=== PATIENT | male | born 1950 | race Two or more races ===

== ENCOUNTER 2023-09-05 08:45 | Inpatient (IN) | payer OTHER ==
[~2023-09-05] VITALS: Ht 172.7 cm; Wt 65.8 kg
[2023-09-05] MEDS ORDERED: COZAAR25 MG PO (10:21)
[2023-09-05] MEDS ORDERED: CHILDREN'S ASPI81 MG PO (10:22)
[2023-09-05] MEDS ORDERED: AMLODIPINE BESY10 MG PO (10:22)
[2023-09-05 10:26] LABS: HEMATOCRIT 36.4 % (39.0-48.0); HEMOGLOBIN 12.6 g/dL (13-16.00); MEAN CELL VOLUME 86.9 fL (80.0-100.00); MEAN CORPUSCULAR HEMOGLOBIN 30.2 pg (27.00-32.0); MEAN CORPUSCULAR HGB CONC 34.7 g/dl (32.0-36.0); PLATELET COUNT 232 K/uL (150-450); RED BLOOD COUNT 4.18 M/uL (4.00-6.00); RED CELL DISTRIBUTION WIDTH 14.1 % (11.5-14.5)
[2023-09-05 10:41] LABS: URINE APPEARANCE Clear; URINE BILIRRUBIN Negative (NEGATIVE); URINE COLOR Yellow; URINE GLUCOSE Negative (NEGATIVE); URINE LEUKOCYTE Negative; URINE NITRATE Negative; URINE PROTEIN Negative (NEGATIVE); URINE UROBILINOGEN 0.2 E.U./dl
[2023-09-05 10:42] LABS: URINE BACTERIA 8.8 uL (0.0-1933); URINE RBC 20.4 uL (0.0-20.8); URINE WBC 3.2 uL (0.0-23.2)
[2023-09-05 11:03] LABS: URINE BLOOD TRACE; URINE EPITHELIAL CELLS 0.4 uL (0.0-38.8)
[2023-09-05 11:05] LABS: INR 0.98; PARTIAL THROMBOPLASTIN TIME 29.3 SECONDS (22.0-34.0); PROTHROMBIN TIME 10.3 SECONDS (9.0-11.5)
[2023-09-05 11:38] LABS: ALBUMIN 4.6 gm/dL (3.4-5.0); BILIRUBIN TOTAL 0.39 mg/dL (0.3-1.2); CALCIUM 9.3 mg/dL (8.5-10.1); CREATININE SERUM 0.8 mg/dL (0.70-1.30); GFR 94.5; GLOBULINA 3.9 G/DL (2.4-3.5); POTASSIUM 3.66 mEq/L (3.5-5.1); TOTAL PROTEIN 8.5 gm/dL (6.4-8.2)
[2023-09-12] MEDS ORDERED: CEFAZOLIN SODIUM 1,000 MG VIAL ONE (09:45)
[2023-09-12] MEDS ORDERED: VANCOMYCIN HCL 1,000 MG VIAL ONE (09:46)
[2023-09-12] MEDS ORDERED: TRANEXAMIC ACID 100MG/1ML (1000MG) AMPUL IV ONE ×3 (09:46→11:45)
[2023-09-12] MEDS ORDERED: LIDOCAINE HCL 1%/Epi 20ML VIAL IJ ONE ×2 (09:46→11:30)
[2023-09-12] MEDS ORDERED: BUPIVACAINE HCL/PF 0.5% 30ML ML ONE (09:46)
[2023-09-12] MEDS ORDERED: KETOROLAC TROMETHAMINE 60 MG VIAL IM ONE ×2 (09:46→11:30)
[2023-09-12] MEDS ORDERED: MORPHINE SULFATE 4 MG/ML CARTRIDGE IV PRN (10:15)
[2023-09-12] MEDS ORDERED: ONDANSETRON HCL 2 MG/ML VIAL IV PRN (10:15)
[2023-09-12] MEDS ORDERED: SODIUM CHLORIDE 0.45 % 1,000 ML IV SCH (10:15)
[2023-09-12] MEDS ORDERED: OxyCODONE HCL 5 MG TABLET (ROXICODONE) PO PRN (10:15)
[2023-09-12] MEDS ORDERED: POVIDONE-IODINE SCRUB 118 ML BOTT TOP ONE (11:18)
[2023-09-12] MEDS ORDERED: BUPIVACAINE HCL 30 ML VIAL IJ ONE (11:30)
[2023-09-12] MEDS ORDERED: CEFAZOLIN SODIUM 1,000 MG VIAL IV ONE (11:30)
[2023-09-12] MEDS ORDERED: VANCOMYCIN HCL 1,000 MG VIAL IR ONE (11:45)
[2023-09-12] MEDS ORDERED: ACETAMINOPHEN 500 MG GEL..CAP PO SCH (12:00)
[2023-09-12] MEDS ORDERED: ENALAPRILAT DIHYDRATE 1.25 MG/ML VIAL IV PRN (15:30)
[2023-09-12] MEDS ORDERED: CEFAZOLIN SODIUM 1,000 MG VIAL IV SCH (17:00)
[2023-09-12] MEDS ORDERED: GABAPENTIN 300 MG CAPSULE PO SCH (17:00)
[2023-09-13 06:29] LABS: HEMATOCRIT 26.4 % (39.0-48.0); MEAN CELL VOLUME 86.5 fL (80.0-100.00); MEAN CORPUSCULAR HGB CONC 34.9 g/dl (32.0-36.0); PLATELET COUNT 172 K/uL (150-450); RED BLOOD COUNT 3.05 M/uL (4.00-6.00); RED CELL DISTRIBUTION WIDTH 13.8 % (11.5-14.5)
[2023-09-13 06:53] LABS: HEMOGLOBIN 9.2 g/dL (13-16.00); MEAN CORPUSCULAR HEMOGLOBIN 30.1 pg (27.00-32.0)
[2023-09-13] MEDS ORDERED: LOSARTAN POTASSIUM 50 MG TABLET PO SCH (09:00)
[2023-09-13] MEDS ORDERED: SENNOSIDES 1 TAB TABLET PO SCH (09:00)
[2023-09-13] MEDS ORDERED: APIXABAN 2.5 MG TABLET PO SCH (09:00)
[2023-09-13] MEDS ORDERED: AMLODIPINE BESYLATE 10 MG TABLET PO SCH (09:00)
[2023-09-13] MEDS ORDERED: ELIQUIS2.5 MG PO (09:01)
[2023-09-13] MEDS ORDERED: PERCOCET 5-3251 EACH PO (09:01)
[2023-09-13] MEDS ORDERED: DUI500 PO (09:01)
[2023-09-13] MEDS ORDERED: Cyanocobalamin/Mecobalamin 1 TAB.SL SL SCH (11:03)
[2023-09-13] MEDS ORDERED: SOD FERRIC GLUC COMPLX/SUCROSE 62.5 MG/5 ML AMPUL IV SCH (11:03)
[2023-09-13] MEDS ORDERED: VITAMIN B COMPLEX 1 EACH PO SCH (11:03)
[2023-09-13] MEDS ORDERED: FUROsemide 20 MG/2 ML VIAL IV SCH (11:15)
[2023-09-14] MEDS ORDERED: IRON FUM,PS/FOLIC ACID/VITC/B3 1 CAP CAPSULE PO SCH (09:00)
[2023-09-14 11:55] LABS: HEMATOCRIT 35.3 % (39.0-48.0); HEMOGLOBIN 12.2 g/dL (13-16.00); MEAN CORPUSCULAR HEMOGLOBIN 29.3 pg (27.00-32.0); MEAN CORPUSCULAR HGB CONC 34.4 g/dl (32.0-36.0); PLATELET COUNT 167 K/uL (150-450); RED BLOOD COUNT 4.16 M/uL (4.00-6.00); RED CELL DISTRIBUTION WIDTH 14.3 % (11.5-14.5)
[2023-09-14] MEDS ORDERED: OxyCODONE HCL 5 MG TABLET (ROXICODONE) PO PRN (13:45)
== END 2023-09-14 21:20 | DRG 470 ==
LOC: SURH 09-12 06:00 → O/R 09-12 06:00 → SURH 09-12 07:00
PROVIDERS: ADMIT Orthopaedic Surgery; ATTEND Orthopaedic Surgery
PROC: 0MBL0ZZ Excision of Right Hip Bursa and Ligament, Open Approach (ICD-10-PCS; 2023-09-12)
PROC: 0SR90JA Replacement of Right Hip Joint with Synthetic Substitute, Uncemented, Open Approach (ICD-10-PCS; principal; 2023-09-12 07:00)
PROC: 30233N1 Transfusion of Nonautologous Red Blood Cells into Peripheral Vein, Percutaneous Approach (ICD-10-PCS; 2023-09-13)
DX: M16.11 Unilateral primary osteoarthritis, right hip (principal); D62 Acute posthemorrhagic anemia; M89.751 Major osseous defect, right pelvic region and thigh; M70.61 Trochanteric bursitis, right hip; I10 Essential (primary) hypertension

== ENCOUNTER 2024-12-04 07:44 | Inpatient (IN) | payer OTHER ==
[~2024-12-04] VITALS: Ht 167.6 cm; Wt 59.0 kg
[~2024-12-04 07:44] MED LIST: AMLODIPINE BESY10 MG PO; CHILDREN'S ASPI81 MG PO; COZAAR25 MG PO; DUI500 PO; ELIQUIS2.5 MG PO; PERCOCET 5-3251 EACH PO
[2024-12-04 08:48] VITALS: BP 145/65
[2024-12-04 09:04] LABS: BASO % 1.7 % (0.1-1.2); EOS # 0.22 (0.04-0.54); EOS % 4.8 % (0.7-7.0); HEMATOCRIT 36.7 % (40.1-51.0); HEMOGLOBIN 12.2 g/dL (13.7-17.5); LYMPH # 1.16 (1.18-3.74); LYMPH % 25.1 % (19.3-53.1); MONO # 0.56 (0.24-0.82); NEUT # 2.59 (1.56-6.13); NEUT % 56.1 % (34.0-71.1); PLATELET COUNT 223 K/uL (163-369)
[2024-12-04 09:08] LABS: PH,URINE 7.5 (5.0-8.0); URINE APPEARANCE Clear; URINE BILIRRUBIN Negative (NEGATIVE); URINE BLOOD Trace; URINE COLOR Yellow; URINE GLUCOSE Negative (NEGATIVE); URINE KETONE Negative (NEGATIVE); URINE LEUKOCYTE Negative; URINE NITRATE Negative; URINE PROTEIN Negative (NEGATIVE); URINE UROBILINOGEN 0.2 E.U./dl
[2024-12-04 09:09] LABS: MONO % 12.1 % (4.7-12.5)
[2024-12-04 09:10] LABS: URINE RBC 17.6 uL (0.0-20.8)
[2024-12-04 09:15] LABS: URINE BACTERIA 2.4 uL (0.0-1933); URINE EPITHELIAL CELLS 0.3 uL (0.0-38.8); URINE WBC 0.9 uL (0.0-23.2)
[2024-12-04 09:26] LABS: COVID-19 AG NEGATIVE (NEGATIVE)
[2024-12-04 09:40] LABS: INR 0.97; PROTHROMBIN TIME 10.6 SECONDS (9.0-11.5)
[2024-12-04 10:18] LABS: CHOL HDL RATIO 1.6 (0-5.0)
[2024-12-04 10:20] LABS: ALBUMIN 4.5 gm/dL (3.4-5.0); BILIRUBIN TOTAL 0.47 mg/dL (0.3-1.2); CALCIUM 9.7 mg/dL (8.5-10.1); CREATININE SERUM 0.79 mg/dL (0.70-1.30); GFR 95.62; GLOBULINA 3.8 G/DL (2.4-3.5); POTASSIUM 4.26 mEq/L (3.5-5.1); TOTAL PROTEIN 8.3 gm/dL (6.4-8.2)
[2024-12-10] MEDS ORDERED: VANCOMYCIN HCL 1,000 MG VIAL ONE (06:26)
[2024-12-10] MEDS ORDERED: BUPIVACAINE HCL/MPF 0.5% 30ML VIAL ONE (06:26)
[2024-12-10] MEDS ORDERED: LIDOCAINE HCL 1%/EPINEPHRINE 20ML VIAL IJ ONE (06:26)
[2024-12-10] MEDS ORDERED: KETOROLAC TROMETHAMINE 60 MG VIAL IM ONE (06:26)
[2024-12-10] MEDS ORDERED: POVIDONE-IODINE 118 ML BOTT TOP ONE (06:27)
[2024-12-10] MEDS ORDERED: CEFAZOLIN SODIUM 1,000 MG VIAL ONE ×2 (06:32→06:55)
[2024-12-10] MEDS ORDERED: TRANEXAMIC ACID 100MG/1ML (1000MG) AMPUL IV ONE (06:33)
[2024-12-10] MEDS ORDERED: LATANOPROST2.5 ML (08:14)
[2024-12-10] MEDS ORDERED: DORZOLAMIDE-TIM10 ML (08:14)
[2024-12-10] MEDS ORDERED: LOSARTAN-HCTZ1 EAC1 (08:14)
[2024-12-10] MEDS ORDERED: ATORVASTATIN CA20 MG (08:14)
[2024-12-10] MEDS ORDERED: ST. JOSEPH ASPI81 M2 (08:15)
[2024-12-10] MEDS ORDERED: MORPHINE SULFATE 4 MG/ML CARTRIDGE IV PRN (09:30)
[2024-12-10] MEDS ORDERED: OxyCODONE HCL 5 MG TABLET (ROXICODONE) PO PRN (09:30)
[2024-12-10] MEDS ORDERED: ONDANSETRON HCL 2 MG/ML VIAL IV PRN (09:30)
[2024-12-10] MEDS ORDERED: SODIUM CHLORIDE 0.45 % 1,000 ML IV SCH (09:30)
[2024-12-10] MEDS ORDERED: ENALAPRILAT DIHYDRATE 1.25 MG/ML VIAL IV PRN (10:30)
[2024-12-10] MEDS ORDERED: MORPHINE SULFATE 4 MG/ML VIAL IV ONE (11:10)
[2024-12-10] MEDS ORDERED: ACETAMINOPHEN 500 MG GEL..CAP PO SCH (12:00)
[2024-12-10 12:09] VITALS: BP 138/74; O2SAT 100
[2024-12-10 16:33] VITALS: BP 143/64; O2SAT 100
[2024-12-10] MEDS ORDERED: CEFAZOLIN SODIUM 1,000 MG VIAL IV SCH (17:00)
[2024-12-10] MEDS ORDERED: GABAPENTIN 300 MG CAPSULE PO SCH (17:00)
[2024-12-11 01:04] VITALS: BP 121/65; O2SAT 99
[2024-12-11 06:49] LABS: BASO % 0.8 % (0.1-1.2); EOS # 0.03 (0.04-0.54); EOS % 0.6 % (0.7-7.0); HEMATOCRIT 28.4 % (40.1-51.0); LYMPH # 0.92 (1.18-3.74); LYMPH % 18.5 % (19.3-53.1); MEAN CORPUSCULAR HEMOGLOBIN 29.4 pg (25.6-32.2); NEUT # 3.27 (1.56-6.13); NEUT % 65.8 % (34.0-71.1); PLATELET COUNT 181 K/uL (163-369); RED CELL DISTRIBUTION WIDTH 13.8 % (11.6-14.4)
[2024-12-11 06:59] LABS: HEMOGLOBIN 9.7 g/dL (13.7-17.5); MONO % 14.1 % (4.7-12.5)
[2024-12-11 08:12] VITALS: BP 137/52; O2SAT 100
[2024-12-11] MEDS ORDERED: PERCOCET 5-3251 EACH PO (08:37)
[2024-12-11] MEDS ORDERED: DUI500 PO (08:37)
[2024-12-11] MEDS ORDERED: ELIQUIS2.5 MG PO (08:37)
[2024-12-11] MEDS ORDERED: AMLODIPINE BESYLATE 10 MG TABLET PO SCH (09:00)
[2024-12-11] MEDS ORDERED: LOSARTAN/HYDROCHLOROTHIAZIDE 1 UDTAB TABLET PO SCH (09:00)
[2024-12-11] MEDS ORDERED: SENNOSIDES 1 TAB TABLET PO SCH (09:00)
[2024-12-11] MEDS ORDERED: APIXABAN 2.5 MG TABLET PO SCH (09:00)
[2024-12-11 11:25] LABS: COVID-19 AG NEGATIVE (NEGATIVE)
[2024-12-11] MEDS ORDERED: FUROsemide 20 MG/2 ML VIAL IV PRN (14:45)
[2024-12-11] MEDS ORDERED: FUROsemide 20 MG/2 ML VIAL IV SCH (15:15)
[2024-12-11 16:55] VITALS: BP 134/64; O2SAT 98
[2024-12-11] MEDS ORDERED: VITAMIN B COMPLEX 1 EACH PO SCH (17:00)
[2024-12-11] MEDS ORDERED: Cyanocobalamin/Mecobalamin 1 TAB.SL SL SCH (17:00)
[2024-12-12 00:19] VITALS: BP 131/56; O2SAT 98
[2024-12-12 08:00] VITALS: BP 117/63; O2SAT 99
[2024-12-12] MEDS ORDERED: IRON FUM,PS/FOLIC ACID/VITC/B3 1 CAP CAPSULE PO SCH (09:00)
[2024-12-12] MEDS ORDERED: FUROsemide 20 MG/2 ML VIAL IV SCH (14:45)
[2024-12-12 16:05] VITALS: BP 117/62; O2SAT 99
[2024-12-12 16:29] LABS: BASO % 0.3 % (0.1-1.2); EOS # 0.05 (0.04-0.54); EOS % 0.6 % (0.7-7.0); HEMATOCRIT 32.8 % (40.1-51.0); HEMOGLOBIN 11.4 g/dL (13.7-17.5); LYMPH # 1.09 (1.18-3.74); LYMPH % 12.2 % (19.3-53.1); MEAN CORPUSCULAR HEMOGLOBIN 29.2 pg (25.6-32.2); MONO # 0.83 (0.24-0.82); MONO % 9.3 % (4.7-12.5); NEUT # 6.93 (1.56-6.13); NEUT % 77.4 % (34.0-71.1); PLATELET COUNT 169 K/uL (163-369); RED BLOOD COUNT 3.91 M/uL (4.63-6.08); RED CELL DISTRIBUTION WIDTH 14.4 % (11.6-14.4)
== END 2024-12-12 21:02 | DRG 470 ==
LOC: O/R 12-10 05:34 → SURG 12-10 05:34
PROVIDERS: ADMIT Orthopaedic Surgery; ATTEND Orthopaedic Surgery
PROC: 0MBL0ZZ Excision of Right Hip Bursa and Ligament, Open Approach (ICD-10-PCS; 2024-12-10)
PROC: 0SR90JZ Replacement of Right Hip Joint with Synthetic Substitute, Open Approach (ICD-10-PCS; principal; 2024-12-10 07:00)
PROC: 30233N1 Transfusion of Nonautologous Red Blood Cells into Peripheral Vein, Percutaneous Approach (ICD-10-PCS; 2024-12-11)
DX: M16.12 Unilateral primary osteoarthritis, left hip (principal); D62 Acute posthemorrhagic anemia; M25.652 Stiffness of left hip, not elsewhere classified; M70.62 Trochanteric bursitis, left hip